=== PATIENT | female | born 1945 | race Caucasian/White ===

== ENCOUNTER 2017-06-10 06:37 | Day surgery (SDC) | payer MEDICARE, OTHER ==
--- NOTE | 2017-05-02 08:53 | HP ---
CC: Dr. Bang Nevarez; Leoncio Macedo NP * ADMISSION HISTORY AND PHYSICAL: DATE OF ADMISSION: 05/13/17 ATTENDING SURGEON: Elisa Farooq MD * (CARLTON Domingo, dictating). CHIEF COMPLAINT: Left thyroid nodule. HISTORY OF PRESENT ILLNESS: This is a 71-year-old hypertensive, diabetic female who has had a known left thyroid nodule for at least the past 7 to 8 years. It has gradually increased in size and more recently, she has noted some mild difficulty breathing and swallowing. She has undergone thyroid ultrasounds and most recent on 03/31/17 showing enlargement of the thyroid. The right lobe measured 5.0 x 1.3 x 1.6 cm and the left lobe measured 6.8 x 4 x 5.3 cm. There is a dominant nodule in the left lobe measuring 5.7 x 3.6 x 4.6 cm, which was increased in size from prior sonogram from 2013. It was described as isoechoic and mildly heterogeneous. There was a second hypoechoic nodule noted in the mid pole of the right lobe measuring up to 0.6 cm. A ultrasound-guided fine needle aspiration was performed with pathology with benign findings per the patient (report not immediately available). She was referred for evaluation with Dr. Farooq and was seen on 04/27/17. Her family history is positive for thyroid surgery for goiter for her mother. No other endocrinopathies. She has apparently been euthyroid throughout. Dr. Farooq described the indications for surgery, the risks, benefits, and alternatives. The patient understands the expected perioperative course and would like to proceed as scheduled with left hemithyroidectomy. PAST MEDICAL HISTORY: Hypertension, type 2 diabetes, hyperlipidemia. PAST SURGICAL HISTORY: Includes bilateral cataract extraction and an abdominal subtotal hysterectomy for benign disease. CURRENT MEDICATIONS: 1. Aspirin 81 mg once daily (the patient will stop 10 days preoperatively). 2. Atorvastatin 10 mg once daily. 3. Metformin 500 mg once daily. 4. Glipizide 5 mg q.a.m. 5. Metoprolol extended release 25 mg daily. 6. Calcium 600 mg with vitamin D once daily. DRUG ALLERGIES: PENICILLIN (itching). FAMILY HISTORY: Negative for anesthesia problems, bleeding, or clotting disorders. SOCIAL HISTORY: The patient is . 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 She smokes 5 cigarettes per day, down from one half pack per day for the past 30 years. She is trying to quit altogether. She does not drink alcohol and denies other recreational drug use. REVIEW OF SYSTEMS: General: No recent constitutional symptoms or acute illnesses. Her weight has been stable. Cardiovascular: No chest pain, palpitations or history of heart murmur. She is treated for hypertension. Respiratory: No history of asthma, chronic cough, or shortness of breath. GI: No problems reported. Colonoscopy done approximately 4 years ago with normal report. : No problems reported. GREEN MEAT PACKER: Annual pelvic exam done. She is unsure about last Pap smear. Annual breast exam and mammogram scheduled in the near future. No interval problems reported (she has had 2 previous breast biopsies for benign disease). Endocrine: She is treated for type 2 diabetes. No symptoms of hyper or hypothyroidism. PHYSICAL EXAMINATION GENERAL: Well-nourished, well-developed female, in no acute distress. VITAL SIGNS: Height 5 feet 4 inches, weight 158 pounds. Blood pressure 132/70 , pulse 72, respirations 16. HEENT: Pupils equal and round, reactive. EOMs intact. No conjunctival pallor. Oropharynx, teeth in good repair. No intraoral lesions. NECK: There is a visible swelling in the left neck consistent with known goiter. This is smooth and without significant nodularity. There is no palpable tenderness. There is no palpable cervical or supraclavicular lymphadenopathy. There are no dominant masses palpable on the right. Trachea appears to be midline. No carotid bruits. LUNGS: Clear to auscultation. No rales or wheezes. HEART: Regular rate and rhythm. No murmur noted. BREASTS: Not examined. ABDOMEN: Soft, nontender to palpation. No palpable masses or organomegaly. GENITALIA: Not done. RECTAL: Not done. BACK: No spinous process or CVA tenderness. EXTREMITIES: No edema. NEUROLOGICAL: Grossly intact. SKIN: Warm and dry. No suspicious rashes or lesions. IMPRESSION: Left goiter (nontoxic thyroid nodule). PLAN: Left hemithyroidectomy. CARLTON DOMINGO [id number]/[facility] #: [id number] [facility] HOSPITALNicole
--- NOTE | 2017-05-30 06:23 | HP ---
CC: Dr. Bang Nevarez; Leoncio Macedo NP * PREOPERATIVE HISTORY AND PHYSICAL: DATE OF ADMISSION: 06/10/17 This patient is scheduled for same-day surgery admission by Dr. Farooq on Tuesday , 06/10/17. DATE OF UPDATED PREOPERATIVE HISTORY AND PHYSICAL EXAMINATION: 05/27/17 ATTENDING SURGEON: Elisa Farooq MD * (dictated by Lissy Goyal NP). CHIEF COMPLAINT: Left thyroid nodule. HISTORY OF PRESENT ILLNESS: The patient 71-year-old female with hypertension and type 2 diabetes, who has a known left thyroid nodule for the past 7 to 8 years. It has gradually increased in size and more recently, she has noted some mild difficulty breathing and swallowing. She has undergone thyroid ultrasounds and the most recent on 03/31/17 showed enlargement of the thyroid. The right lobe measured 5 x 1.3 x 1.6 cm and the left lobe measured 6.8 x 4 x 5.3 cm. There is a dominant nodule in the left lobe measuring 5.7 x 3.6 x 4.6 cm, which was increased in size from the prior sonogram in 2013. It was described as isoechoic and mildly heterogeneous. There was a second hypoechoic nodule noted in the mid pole of the lobe measuring up to 0.6 cm. An ultrasound guided fine needle aspiration was performed with benign findings. She was referred for evaluation with Dr. Farooq and Dr. Farooq reviewed the above findings with her and has recommended left hemithyroidectomy. The patient's family history is positive for thyroid surgery for goiter for her mother. No other endocrinopathies. The patient apparently has been euthyroid throughout. Dr. Farooq described the nature of the surgical procedure, the rationale for the surgery, the relevant risks, benefits, and alternatives and today I reviewed the typical postoperative care and recovery. The patient has had a chance to ask questions and stated that she understands the information and is satisfied with the answers given to her questions. She will sign surgical consent on the day of surgery. PAST MEDICAL HISTORY: Hypertension, type diabetes, and hyperlipidemia. PAST SURGICAL HISTORY: Bilateral cataract extraction, abdominal subtotal hysterectomy for benign disease, and left hip replacement approximately 15 years ago. CURRENT MEDICATIONS: 1. Aspirin 81 mg p.o. daily, which she will stop 10 days preoperatively. 2. Atorvastatin 10 mg daily around noon. 3. Metformin 500 mg daily and she will hold metformin on 06/09/17 and on the morning of surgery. 4. Glipizide 5 mg p.o. daily in the morning. 5. Metoprolol extended release 25 mg daily around noon. 6. Calcium with vitamin D supplement daily. ALLERGIES: PENICILLIN causes itching. FAMILY HISTORY: Positive for thyroid surgery for goiter for her mother. Negative for anesthesia problems, bleeding, or clotting disorders. 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 She does not drink alcohol and denies the use of other substances. REVIEW OF SYSTEMS: Constitutional: No fevers, chills, excessive fatigue, or weight loss. Endocrine: She is a type 2 diabetic. She does not check her fingersticks, but has routine primary care followup every 4 months and thinks that her last fasting blood sugar was 150; she has tyroid disease as described in history of present illness. Hematologic: No easy bruising or bleeding. No blood transfusions. Respiratory: No dyspnea on exertion. No chronic cough. Cardiovascular: No anginal chest pain or palpitations. Gastrointestinal: No nausea, vomiting, diarrhea, or constipation. No change in bowel habits. Genitourinary: No dysuria. Musculoskeletal: No complaints of joint or back pain. Neurologic: No head-aches, blurred vision, or areas of focal weakness. General: No history of anesthesia complications. No history of deep vein thrombosis or pulmonary embolism. No bleeding tendencies. PHYSICAL EXAMINATION GENERAL SURVEY: The patient is a 71-year-old female, well-developed, well- nourished, in no acute distress. VITAL SIGNS: Height 5 feet 4 inches, weight 158 pounds. Body mass index 27. Blood pressure 118/78, pulse 84 and regular, respiratory rate 18, temperature 97 tympanic. SKIN: Warm, dry, intact. HEENT: Benign. NECK: Supple. There is visible swelling in the left neck consistent with known goiter. This is smooth and without significant nodularity. There is no palpable tenderness. No palpable cervical or supraclavicular lymphadenopathy. No palpable masses on the right. No carotid bruits. LUNGS: Breath sounds bilaterally clear and equal. HEART: Regular rate and rhythm. No murmurs or rubs appreciated. ABDOMEN: Active bowel sounds. Soft, nondistended, and nontender throughout. No obvious masses or organomegaly. BACK: No CVA tenderness. PELVIC: Deferred. RECTAL: Deferred. EXTREMITIES: Warm without edema or skin ulcerations. NEUROLOGIC: Alert and oriented x3. Steady gait. IMPRESSION: Nontoxic single left thyroid nodule. PLAN: Same-day surgery admission to Dr. Farooq's service on 06/10/17, for left hemithyroidectomy. JOSE GOYAL, CHRISTMAS TREE GRADER [id number]/[facility] #: [id number] MICHAEL
[~2017-06-10 06:37] MED LIST: Buffered Lidocaine 0.9% SYRIN* 5 ML/SYR SYRINGE INTRADERM ONE; Sodium Citrate/Citric Acid* 15 ML UDC PO ONE
[2017-06-10] MEDS ORDERED: Sodium Citrate/Citric Acid* 15 ML UDC ONE (06:46)
[2017-06-10] MEDS ORDERED: Bupivacaine 0.25% SDV* 30 ML ONE (07:47)
[2017-06-10] MEDS ORDERED: fentaNYL* 50 MCG/ML 2 ML VIAL (100 MCG VIAL) ONE ×2 (07:55→10:43)
[2017-06-10] MEDS ORDERED: Midazolam* 1 MG/ML 2 ML VIAL (2 MG) ONE (07:55)
[2017-06-10] MEDS ORDERED: Cisatracurium* 2 MG/ML MDV 5 ML ONE (08:28)
[2017-06-10] MEDS ORDERED: Propofol* 10 MG/ML 20 ML BTL IV PUSH ONE (08:36)
[2017-06-10] MEDS ORDERED: Lidocaine 2% PF * 5 ML VIAL ONE (08:36)
[2017-06-10] MEDS ORDERED: Phenylephrine IV* 40 MCG/ML 10 ML SYRINGE ONE (08:57)
[2017-06-10] MEDS ORDERED: Naloxone* 0.4 MG/ML 1 ML VIAL IV PRN (09:04)
[2017-06-10] MEDS ORDERED: Ondansetron INJ* 2 MG/ML VIAL IV PRN (09:04)
[2017-06-10] MEDS ORDERED: fentaNYL* 50 MCG/ML 2 ML VIAL (100 MCG VIAL) IV PRN (09:04)
[2017-06-10] MEDS ORDERED: HYDROcodone/ACET. 7.5/325 LIQ* 15 ML UDC PO PRN (09:53)
[2017-06-10] MEDS ORDERED: Ondansetron INJ* 2 MG/ML VIAL ONE (10:04)
[2017-06-10 11:06] VITALS: BP 124/66
--- NOTE | 2017-06-11 01:15 | OP ---
CC: [facility]; Dr. Bang Nevarez; Leoncio Macedo NP OPERATIVE SUMMARY: DATE OF OPERATION: 06/10/17 DATE OF : 49 SURGEON: Elisa Farooq MD GIN POLE OPERATOR: CARLTON Anderson PRE-OP DIAGNOSIS: Left thyroid nodule. POST-OP DIAGNOSIS: Left thyroid nodule. OPERATIVE PROCEDURE: Left hemithyroidectomy. INDICATIONS: Ms. Cornelius is a 71-year-old woman who presented to the office with symptomatic enlargeme nt of her left thyroid gland, although this was known to be benign, because it was causing symptoms, she elected to have surgery. DESCRIPTION OF PROCEDURE: She was brought to the operating room, placed on the OR table in a supine position, and given general anesthesia. The neck was prepped and draped in the usual sterile fashion . After infiltrating with local anesthetic, an incision was made along the line that had been marked preoperatively, and subcutaneous tissue was divided with electrocautery through the platysma muscle. Flaps were then developed superiorly through the thyroid notch and inferiorly to the sternal notch a nd then the strap muscles were divided along the midline. They were retracted laterally over the lef t lobe of the thyroid gland. The dissection was begun in the medial portion of the gland in the uppe r pole region. Individual vessels were identified and then divided between LigaSure and clip. The u pper pole freed up fairly easily and then attention was turned to the lower pole, and here, there wer e very few attachments and in fact just digital manipulation mobilized the lower pole adequately so t hat the entire gland could be extruded out of the wound. The middle of the gland was dissected using blunt dissection. Individual vessels were identified, were divided either with LigaSure or between c lips, and then the recurrent laryngeal nerve was identified and both parathyroids were identified and noted to be intact through the case. The gland was elevated off the trachea and the final attachmen ts to the trachea were divided with electrocautery. The distal end of the isthmus was clamped and th e gland was amputated and handed off as a specimen labeled left lobe of thyroid and isthmus. The ist hmus stump was suture ligated and then the wound bed was inspected for hemostasis. This was achieved with a combination of clips, electrocautery, and Surgicel. Once hemostasis appeared adequate, closu re was accomplished with 3-0 Vicryl to reapproximate the strap muscles, 4-0 Vicryl to reapproximate t he platysma muscle and the skin was closed with 4-0 Prolene in a subcuticular fashion. Steri-strips and a dry fluffy dressing were applied. All sponge and instrument counts were correct. The patient tolerated the procedure well and was transferred to Recovery in a stable condition. [id number]/[facility] #: [id number]
== END 2017-06-10 11:10 | disposition home or self-care (01) ==
LOC: OR 06:37
PROVIDERS: ATTEND Surgery
DX: E04.1 Nontoxic single thyroid nodule (principal); E11.9 Type 2 diabetes mellitus without complications; Z79.84 Long term (current) use of oral hypoglycemic drugs; I10 Essential (primary) hypertension; E78.5 Hyperlipidemia, unspecified; F17.210 Nicotine dependence, cigarettes, uncomplicated
CPT/HCPCS: 88307; A9270-GY; J2250; J2405; J2704; J3010

== ENCOUNTER 2020-01-24 08:00 | Observation (INO) ==
[~2020-01-24 08:00] MED LIST changes: -Buffered Lidocaine 0.9% SYRIN* 5 ML/SYR SYRINGE INTRADERM ONE; +Buffered Lidocaine 1% SYRIN 1 ml INTRADERM ONE; +Famotidine IV 10 MG/ML 2 ml VIAL (20 mg) IV ONE; +Lactated Ringers 1000 ml BAG 1,000 ML IV SCH; -Sodium Citrate/Citric Acid* 15 ML UDC PO ONE
[2020-01-24] MEDS ORDERED: Famotidine IV 10 MG/ML 2 ml VIAL (20 mg) ONE (08:37)
[2020-01-24] MEDS ORDERED: Buffered Lidocaine 1% SYRIN 1 ml INTRADERM ONE (08:37)
[2020-01-24] MEDS ORDERED: Clindamycin 900 MG/D5W BAG 900 MG/50 ML BAG IVPB ONE (10:41)
[2020-01-24] MEDS ORDERED: Midazolam 5 mg/5 ml VIAL 1 mg/ml 5 ml VIAL (5 mg) ONE (10:44)
[2020-01-24] MEDS ORDERED: Midazolam 2 mg/2 ml VIAL 1 mg/ml 2 ml VIAL (2 mg) ONE (10:55)
[2020-01-24] MEDS ORDERED: Ketamine HCL 50 mg/ml 10 ml VIAL (500 MG) ONE (11:13)
[2020-01-24] MEDS ORDERED: fentaNYL 100 mcg/2 ml 50 MCG/ML VIAL ONE (11:13)
[2020-01-24] MEDS ORDERED: Magnesium Hydroxide LIQ 30 ML UDC PO PRN (11:42)
[2020-01-24] MEDS ORDERED: diPHENhydraMINE IV 50 MG/ML 1 ml VIAL (BENADRYL) IV PRN (11:42)
[2020-01-24] MEDS ORDERED: Lactulose 30 ml UDC PO PRN (11:42)
[2020-01-24] MEDS ORDERED: Ondansetron 4 mg VIAL 2 MG/ML 2 ml VIAL IV PRN (11:42)
[2020-01-24] MEDS ORDERED: diPHENhydraMINE 25 mg TAB PO PRN (11:42)
[2020-01-24] MEDS ORDERED: Morphine 2 MG/ML SYRINGE IV PRN (11:42)
[2020-01-24] MEDS ORDERED: Ondansetron ODT 4 mg TAB 4 MG TAB PO PRN (11:42)
[2020-01-24] MEDS ORDERED: DiMENhydriNATE IV 50 mg/ml 1 ml VIAL ONE (11:45)
[2020-01-24] MEDS ORDERED: Dexamethasone IV 4 MG/ML VIAL 1 ml VIAL ONE (11:45)
[2020-01-24] MEDS ORDERED: Ondansetron 4 mg VIAL 2 MG/ML 2 ml VIAL ONE (11:45)
[2020-01-24] MEDS ORDERED: EPHEDrine (Pressors) 50 MG/ML VIAL ONE (11:45)
[2020-01-24] MEDS ORDERED: Propofol 10 MG/ML 20 ML BTL ONE (11:45)
[2020-01-24] MEDS ORDERED: Phenylephrine 40 mcg/mL 10mL (400mcg) SYRINGE ONE (11:45)
[2020-01-24] MEDS ORDERED: Phenylephrine IV 10 MG/ML 1 ml VIAL ONE (11:56)
[2020-01-24] MEDS ORDERED: HYDROmorphone 1 MG/1 ML SYRINGE IV PRN (12:17)
[2020-01-24] MEDS ORDERED: DiMENhydriNATE IV 50 mg/ml 1 ml VIAL IV PUSH PRN (12:17)
[2020-01-24] MEDS ORDERED: oxyCODONE/Acetamin 5/325 mg TAB PO PRN (12:17)
[2020-01-24] MEDS ORDERED: Naloxone 0.4 mg VIAL 0.4 mg/ml 1 ml VIAL IV PRN (12:17)
[2020-01-24] MEDS ORDERED: HYDROmorphone 1 MG/1 ML SYRINGE ONE (12:34)
[2020-01-24] MEDS ORDERED: oxyCODONE/Acetamin 5/325 mg TAB ONE (13:43)
[2020-01-24] MEDS ORDERED: Dextrose 50% Syringe 50 ml 25 GM/50 ML SYRINGE IV PUSH PRN (15:05)
[2020-01-24] MEDS: Lactated Ringers 1000 ml BAG 1,000 ML IV SCH (15:19)
[2020-01-24] MEDS: Clindamycin 600 MG/D5W BAG 600 MG/50 ML BAG IV SCH (20:20)
[2020-01-24] MEDS: Magnesium Hydroxide LIQ 30 ML UDC PO SCH (20:20)
[2020-01-25] MEDS: Clindamycin 600 MG/D5W BAG 600 MG/50 ML BAG IV SCH ×2 (02:55→10:35)
[2020-01-25] MEDS: Lactated Ringers 1000 ml BAG 1,000 ML IV SCH (02:55)
[2020-01-25] MEDS: oxyCODONE/Acetamin 5/325 mg TAB PO PRN ×3 (03:03→12:05)
[2020-01-25 05:24] LABS: Hematocrit 38 % (35-47); Mean Platelet Volume 9.1 fL (7.4-10.4); Platelet Count 263 10^3/uL (150-450)
[2020-01-25 05:27] LABS: BUN/Creatinine Ratio 23.7 (8-20); Calcium 8.8 mg/dL (8.6-10.3); EGFR African American 71.7 (>60); EGFR Non-African American 59.3 (>60); Potassium 4.3 mmol/L (3.5-5.0)
[2020-01-25] MEDS: Magnesium Hydroxide LIQ 30 ML UDC PO SCH (08:00)
[2020-01-25] MEDS ORDERED: Vitamin THERAPEUTIC TAB PO SCH (09:00)
[2020-01-25 11:15] VITALS: BP 121/63
== END 2020-01-25 12:45 | disposition home or self-care (01) ==
LOC: SSU → AA 08:00 → INTOOBSV 08:00
PROVIDERS: ADMIT Orthopaedic Surgery Adult Reconstructive Orthopaedic Surgery; ATTEND Orthopaedic Surgery Adult Reconstructive Orthopaedic Surgery